=== PATIENT | female | born 1965 | race Caucasian/White ===

== ENCOUNTER → 2017-02-18 | Outpatient (CLI) | payer OTHER ==
--- NOTE | 2017-02-24 10:14 | KCIC ---
Left breast ultrasound: Reason for examination: Followup nodule. Comparison is made to previous study dated 08/15/2016. Ultrasound examination was performed in the area of previous concern at the 2 o'clock position. In the 2 o'clock position 1 centimeter from the nipple, there is a circumscribed hypoechoic 7.5 millimeter nodule. This shows no significant change and could represent a small fibroadenoma or small papilloma. There is also a small focus of fibrocystic change measuring 2.5 millimeters in size in the retroareolar position. No other cystic or solid lesions are seen. Impression: No interval change in the hypoechoic nodule at the 2 o'clock position. This likely represents a small fibroadenoma or papilloma. Recommend continued 6 month followup at the time of bilateral mammograms. BI-RADS category 3: Probably benign. This patient's information has been entered into a reminder system for the patient to be notified with the results of this examination and a target date for her next mammograms. Electronically signed by: Fadumo Penaloza MD (Feb 24, 2017 10:13:06)
== END | disposition home or self-care (01) ==
LOC: KCIC US 07:46
PROVIDERS: ATTEND Obstetrics & Gynecology
DX: R92.8 Other abnormal and inconclusive findings on diagnostic imaging of breast (principal)
CPT/HCPCS: 76641

== ENCOUNTER → 2018-01-11 | Outpatient (CLI) | payer OTHER | END | disposition home or self-care (01) | LOC: KCIC MAMMO 09:47 | DX: N63.20 Unspecified lump in the left breast, unspecified quadrant (principal) | CPT/HCPCS: 76641; 77066; G0279 ==

== ENCOUNTER → 2018-07-14 | Outpatient (CLI) | payer OTHER ==
--- NOTE | 2018-07-14 13:44 | KCIC ---
Left breast ultrasound: Reason for examination: Follow-up nodule. Comparison is made to previous studies dated 01/11/2018, 02/18/2017 and 08/15/2016. Ultrasound examination of the left breast was performed with attention to the upper outer quadrant and left axilla. There is some ductal ectasia in the retroareolar 3:00 position. In the 2:00 position 1 cm from the nipple, there continues to be 7.6 mm hypoechoic heterogeneous lesion which appears to extend into the dermis. The appearance is consistent with a probable sebaceous cyst with no abnormal vasculature. This has not changed. No other cystic or solid lesions are seen. IMPRESSION: No change in the nodule seen in the 2:00 position 1 cm from the nipple. Recommend clinical follow-up and routine mammographic follow-up. BI-RADS Category 2: Benign. "Our facility is accredited by the [employer] Mammography [employer]." This patient's information has been entered into a reminder system for the patient to be notified with the results of her examination and a target date for the next mammogram. Electronically signed by: Albertina Penaloza MD (07/14/2018 1:41 PM) [id number]
== END | disposition home or self-care (01) ==
LOC: KCIC MAMMO 07:47
PROVIDERS: ATTEND Obstetrics & Gynecology
DX: N63.21 Unspecified lump in the left breast, upper outer quadrant (principal)
CPT/HCPCS: 76641

== ENCOUNTER → 2019-05-16 | Outpatient (CLI) | payer OTHER ==
--- NOTE | 2019-05-17 08:41 | KCIC ---
Bilateral digital screening mammograms with 3-D tomosynthesis: Reason for examination: Routine screening. History of breast reduction. Comparison is made to previous studies dated back to 10/11/2015. Bilateral mammograms in CC and oblique projections were obtained with 2-D imaging and 3-D tomosynthesis imaging on a Siemens Inspiration unit and reviewed on the workstation. Interpretation was made with the benefit of CAD. The skin and nipples show no abnormalities. No abnormal axillary lymph nodes are seen. The breast parenchyma shows scattered fatty and fibroglandular density. (Breast density: Category B.) There are postop changes from breast reduction with dense calcification in the anterior right breast consistent with fat necrosis. There continues to be a nodular density in the 3:00 position anteriorly in the left breast just beneath the skin surface which is unchanged. There continues to be parenchymal asymmetry in the upper outer quadrant of the right breast which is unchanged. There are no new dominant masses, suspicious calcifications or architectural distortion. Benign calcifications are present. Impression: No evidence of malignancy. Recommend routine screening. BI-RAD Category 2: Benign. "Our facility is accredited by the [employer] Mammography [employer]." This patient's information has been entered into a reminder system for the patient to be notified with the results of her examination and a target date for the next mammogram. Electronically signed by: Albertina Penaloza MD (05/17/2019 8:38 AM) [id number]
== END | disposition home or self-care (01) ==
LOC: KCIC MAMMO 17:07
PROVIDERS: ATTEND Obstetrics & Gynecology
DX: Z12.31 Encounter for screening mammogram for malignant neoplasm of breast (principal); N64.89 Other specified disorders of breast
CPT/HCPCS: 77063; 77067

== ENCOUNTER → 2020-05-11 | Outpatient (CLI) | payer OTHER ==
--- NOTE | 2020-05-11 12:20 | KCIC ---
Bilateral digital screening mammograms with 3-D tomosynthesis: Reason for examination: Routine screening. History of breast reduction. Comparison is made to previous studies dated 05/16/2019 and 01/11/2018. Bilateral mammograms in CC and oblique projections were obtained with 2-D imaging and 3-D tomosynthesis imaging on a Siemens Inspiration unit and reviewed on the workstation. Interpretation was made with the benefit of CAD. The skin and nipples show no abnormalities. No abnormal axillary lymph nodes are seen. The breast parenchyma shows scattered fatty and fibroglandular density. (Breast density: Category B.) There is dense calcification consistent with calcified fat necrosis in the 12:00 position anteriorly in the right breast. There continues to be small nodular asymmetry posterior laterally in the left breast seen best on CC view which is stable. There are no new dominant masses, suspicious calcifications or architectural distortion. Impression: Postop changes from breast reduction with calcified fat necrosis seen in the right breast. No evidence of malignancy. Recommend routine screening. BI-RAD Category 2: Benign. "Our facility is accredited by the [employer] Mammography Program." This patient's information has been entered into a reminder system for the patient to be notified with the results of her examination and a target date for the next mammogram. Electronically signed by: Albertina Penaloza MD (05/11/2020 12:18 PM) [id number]
== END | disposition home or self-care (01) ==
LOC: KCIC MAMMO 10:35
PROVIDERS: ATTEND Obstetrics & Gynecology
DX: Z12.31 Encounter for screening mammogram for malignant neoplasm of breast (principal)
CPT/HCPCS: 77063; 77067

== ENCOUNTER → 2021-09-02 | Outpatient (CLI) | payer OTHER ==
--- NOTE | 2021-09-02 19:56 | KCIC ---
Bilateral digital screening mammograms with 3-D tomosynthesis: Reason for examination: Routine screening. History of breast reduction. Comparison is made to previous studies dated back to 10/11/2015. Bilateral mammograms in CC and oblique projections were obtained with 2-D imaging and 3-D tomosynthes is imaging on a Siemens Inspiration unit and reviewed on the workstation. Interpretation was made marti jackson the benefit of CAD. The skin and nipples show no abnormalities. No abnormal axillary lymph nodes are seen. The breast par enchyma shows scattered fatty and fibroglandular density. (Breast density: Category B.) There continu es to be focal dense calcification consistent with fat necrosis in the subareolar 12:00 position of t he right breast which is unchanged. There continues to be some nodularity anteriorly at the 11:00 pos ition of the right breast which is unchanged. There continues to be a small nodular density posterior laterally in the left breast probably representing a small intramammary lymph node which is unchange d. There are no new dominant masses, suspicious calcifications or architectural distortion. Benign ca lcifications are present. Impression: No evidence of malignancy. Recommend routine screening. BI-RAD Category 2: Benign. "Our facility is accredited by the [employer] Mammography Program." This patient's information has been entered into a reminder system for the patient to be notified marti jackson the results of her examination and a target date for the next mammogram. Electronically signed by: Albertina Penaloza MD (09/02/2021 7:53 PM) [id number]
== END ==
LOC: KCIC MAMMO 15:56
PROVIDERS: ATTEND Obstetrics & Gynecology
DX: Z12.31 Encounter for screening mammogram for malignant neoplasm of breast (principal); R92.1 Mammographic calcification found on diagnostic imaging of breast
CPT/HCPCS: 77063; 77067